=== PATIENT | female | born 1935 | race Caucasian/White ===

== ENCOUNTER 2017-03-04 13:34 | Emergency (ER) | payer OTHER, BC ==
[2017-03-04] MEDS ORDERED: NS 1,000 ML IV ONE (16:00)
[2017-03-04] MEDS ORDERED: ONDANSETRON 4 MG/2 ML VIAL IVP ONE (16:00)
--- NOTE | 2017-03-04 16:04 | EDPHY ---
H & P Stated Complaint: N/V Time Seen by Provider: 03/04/17 15:49 HPI/ROS: CHIEF COMPLAINT: Nausea vomiting HISTORY OF PRESENT ILLNESS: Patient is a 81-year-old female who comes to the emergency department complaining of nausea and vomiting that began this morning. She has vomited twice. She was admitted 1 month ago for septic shock and had an ex lap for what appeared to be free air in her abdomen however the laparotomy was negative. She has a history of kidney stone with a stent in place that had caused acute kidney injury, atrial fibrillation, ileus and hypertension. She denies any abdominal pain or distention today. She has had normal bowel movements and flatus today. No fevers. No blood in her vomit. REVIEW OF SYSTEMS: Constitutional: denies: chills, fever, recent illness, recent injury EENTM: denies: blurred vision, double vision, nose congestion Respiratory: denies: cough, shortness of breath Cardiac: denies: chest pain, irregular heart rate, lightheadedness, palpitations Gastrointestinal/Abdominal: See HPI Genitourinary: denies: dysuria, frequency, hematuria, pain Musculoskeletal: denies: joint pain, muscle pain Skin: denies: lesions, rash, jaundice, bruising Neurological: denies: headache, numbness, paresthesia, tingling, dizziness, weakness Hematologic/Lymphatic: denies: blood clots, easy bleeding, easy bruising Immunologic/allergic: denies: HIV/AIDS, transplant EXAM: GENERAL: Well-appearing, well-nourished and in no acute distress. HEAD: Atraumatic, normocephalic. EYES: Pupils equal round and reactive to light, extraocular movements intact, sclera anicteric, conjunctiva are normal. ENT: TMs normal, nares patent, oropharynx clear without exudates. Moist mucous membranes. NECK: Normal range of motion, supple without lymphadenopathy or JVD. LUNGS: Breath sounds clear to auscultation bilaterally and equal. No wheezes rales or rhonchi. HEART: Regular rate and rhythm without murmurs, rubs or gallops. ABDOMEN: Incision clean dry and intact, Soft, nontender, normoactive bowel sounds. No guarding, no rebound. No masses appreciated. BACK: No CVA tenderness, no spinal tenderness, step-offs or deformities EXTREMITIES: Normal range of motion, no pitting or edema. No clubbing or cyanosis. NEUROLOGICAL: Cranial nerves II through XII grossly intact. Normal speech, normal gait. 5/5 strength, normal movement in all extremities, normal sensation PSYCH: Normal mood, normal affect. SKIN: Warm, dry, normal turgor, no visible rashes or lesions. Source: Patient Exam Limitations: No limitations - Personal History Current Tetanus Diphtheria and Acellular Pertussis (TDAP): Yes - Medical/Surgical History Hx Asthma: Yes Hx Chronic Respiratory Disease: No Hx Diabetes: No Hx Cardiac Disease: No Hx Renal Disease: No Hx Cirrhosis: No Hx Alcoholism: No Hx HIV/AIDS: No Hx Splenectomy or Spleen Trauma: No Other PMH: med hx-chronic back pain,thyroid,kidney stones,cardiac arrythmia. surg-sachin,appy,cataracts,left radial head,skin graft rt foot,lumbar, and bilat knee replacements - Family History Significant Family History: No pertinent family hx - Social History Smoking Status: Never smoked Alcohol Use: Sober Drug Use: None Constitutional: Initial Vital Signs Temperature (C) 36.8 C 03/04/17 14:13 Heart Rate 96 03/04/17 14:13 Respiratory Rate 18 03/04/17 14:13 Blood Pressure 124/95 H 03/04/17 14:13 O2 Sat (%) 92 03/04/17 14:13 O2 Delivery Mode Room Air Allergies/Adverse Reactions: acetaminophen [From Percocet] Allergy (Verified 03/04/17 16:47) HEADACHE Iodinated Contrast Media - Oral and Allergy (Verified 03/04/17 16:47) SWELLING oxycodone HCl [From Percocet] Allergy (Verified 03/04/17 16:47) HEADACHE warfarin [From Coumadin] Allergy (Verified 03/04/17 16:47) Home Medications: Medication Instructions Recorded Atorvastatin Calcium [Lipitor 20 20 mg PO DAILY 07/01/14 mg (RX)] Levothyroxine [Synthroid 75 mcg 75 mcg PO DAILY 07/01/14 (*)] Metoprolol Tartrate [Lopressor 25 12.5 mg PO BID 07/01/14 mg (*)] oxyCODONE IR [Oxycodone Ir (RX)] 5 mg PO Q6 PRN 07/01/14 Apixaban [Eliquis] 5 mg PO BID 04/27/16 oxyCODONE CR [Oxycontin] 10 mg PO Q4 PRN 04/27/16 Hydrocodone/APAP 5/325 [[place] 1 - 2 tab PO Q6H PRN #15 tab 05/01/16 5/325 (*)] Benzonatate 03/04/17 Ondansetron Odt [Zofran Odt 4 mg 4 mg PO Q4 PRN #20 tab 03/04/17 (RX)] Medical Decision Making ED Course/Re-evaluation: Patient's previous admission was at an outside hospital. I was able [facility] The patient is well-appearing and has a benign abdominal exam today. I will obtain lab work. She is primarily here for hydration and nausea medication. We will continue to re-evaluate. 5:30 p.m. the patient is feeling completely well. She has not vomited again. She is receiving IV fluids. We discussed her lab results and she is reassured. She and her daughter decline any further workup or testing at this time in her eager to go home. We discussed indications for returning. Her abdominal exam remains benign. Differential Diagnosis: Partial list of the Differential diagnosis considered include but were not limited to; vomiting, dehydration and although unlikely based on the history and physical exam, I also considered obstruction, ischemia, the perforation,. I discussed these differential diagnoses and the plan with the patient as well as the usual and expected course. The patient understands that the diagnosis is provisional and that in medicine we are not always correct and that further workup is often warranted. Usual and customary warnings were given. All of the patient's questions were answered. The patient was instructed to return to the emergency department should the symptoms at all worsen or return, otherwise to followup with the physician as we discussed. - Data Points Laboratory Results: Laboratory Results 03/04/17 16:16 03/04/17 16:16 03/04/17 03/04/17 03/04/17 16:18 16:16 16:16 WBC 6.05 10^3/uL 10^3/uL (3.80-9.50) RBC 3.44 10^6/uL L 10^6/uL (4.18-5.33) Hgb 11.4 g/dL L g/dL (12.6-16.3) POC Hgb 11.9 gm/dL L gm/dL (12.6-16.3) Hct 35.7 % L % (38.0-47.0) POC Hct 35 % L % (38-47) MCV 103.8 fL H fL (81.5-99.8) MCH 33.1 pg pg (27.9-34.1) MCHC 31.9 g/dL L g/dL (32.4-36.7) RDW 13.9 % % (11.5-15.2) Plt Count 215 10^3/uL 10^3/uL (150-400) MPV 11.0 fL fL (8.7-11.7) Neut % (Auto) 73.7 % % (39.3-74.2) Lymph % (Auto) 13.4 % L % (15.0-45.0) [place] % (Auto) 9.1 % % (4.5-13.0) Eos % (Auto) 1.8 % % (0.6-7.6) Baso % (Auto) 1.5 % % (0.3-1.7) Nucleat RBC Rel Count 0.8 % H % (0.0-0.2) Absolute Neuts (auto) 4.46 10^3/uL 10^3/uL (1.70-6.50) Absolute Lymphs (auto) 0.81 10^3/uL L 10^3/uL (1.00-3.00) Absolute Monos (auto) 0.55 10^3/uL 10^3/uL (0.30-0.80) Absolute Eos (auto) 0.11 10^3/uL 10^3/uL (0.03-0.40) Absolute Basos (auto) 0.09 10^3/uL 10^3/uL (0.02-0.10) Absolute Nucleated RBC 0.05 10^3/uL H 10^3/uL (0-0.01) Immature Gran % 0.5 % % (0.0-1.1) Immature Gran # 0.03 10^3/uL 10^3/uL (0.00-0.10) VBG Lactic Acid POC Sodium 138 mEq/L mEq/L (134-144) Sodium 137 mEq/L mEq/L (134-144) POC Potassium 4.7 mEq/L mEq/L (3.3-5.0) Potassium 4.9 mEq/L mEq/L (3.5-5.2) POC Chloride 102 mEq/L mEq/L (97-110) Chloride 106 mEq/L mEq/L (97-110) Carbon Dioxide 18 mEq/l L mEq/l (22-31) Anion Gap 13 mEq/L mEq/L (8-16) POC BUN 23 mg/dL mg/dL (7-23) BUN 20 mg/dL mg/dL (7-23) Creatinine 1.6 mg/dL H mg/dL (0.6-1.0) POC Creatinine 1.6 mg/dL H mg/dL (0.6-1.0) Estimated GFR 31 Glucose 100 mg/dL mg/dL (70-100) POC Glucose 102 mg/dL H mg/dL (70-100) Calcium 9.9 mg/dL mg/dL (8.5-10.4) Total Bilirubin 1.0 mg/dL mg/dL (0.1-1.4) Conjugated Bilirubin 0.5 mg/dL mg/dL (0.0-0.5) Unconjugated Bilirubin 0.5 mg/dL mg/dL (0.0-1.1) AST 31 IU/L IU/L (14-46) ALT 27 IU/L IU/L (9-52) Alkaline Phosphatase 81 IU/L IU/L (38-126) Total Protein 8.1 g/dL g/dL (6.3-8.2) Albumin 4.3 g/dL g/dL (3.5-5.0) Lipase 324.0 IU/L H IU/L (23-300) 03/04/17 16:16 WBC RBC Hgb POC Hgb Hct POC Hct MCV MCH MCHC RDW Plt Count MPV Neut % (Auto) Lymph % (Auto) [place] % (Auto) Eos % (Auto) Baso % (Auto) Nucleat RBC Rel Count Absolute Neuts (auto) Absolute Lymphs (auto) Absolute Monos (auto) Absolute Eos (auto) Absolute Basos (auto) Absolute Nucleated RBC Immature Gran % Immature Gran # VBG Lactic Acid 1.3 mmol/L mmol/L (0.7-2.1) POC Sodium Sodium POC Potassium Potassium POC Chloride Chloride Carbon Dioxide Anion Gap POC BUN BUN Creatinine POC Creatinine Estimated GFR Glucose POC Glucose Calcium Total Bilirubin Conjugated Bilirubin Unconjugated Bilirubin AST ALT Alkaline Phosphatase Total Protein Albumin Lipase Medications Given: Discontinued Medications Sodium Chloride (Ns) 1,000 mls @ 0 mls/hr IV EDNOW ONE; Wide Open PRN Reason: Protocol Stop: 03/04/17 16:01 Last Admin: 03/04/17 16:46 Dose: 1,000 mls Ondansetron HCl (Zofran) 4 mg IVP EDNOW ONE Stop: 03/04/17 16:01 Last Admin: 03/04/17 16:46 Dose: 4 mg Point of Care Test Results: 03/04/17 16:18 POC Sodium 138 POC Potassium 4.7 POC Chloride 102 POC BUN 23 POC Creatinine 1.6 H POC Glucose 102 H Departure - Departure Disposition: Home, Routine, Self-Care Clinical Impression: Vomiting Qualifiers: Vomiting type: unspecified Vomiting Intractability: non-intractable Nausea presence: without nausea Qualified Code(s): R11.11 - Vomiting without nausea Condition: Fair Instructions: Acute Nausea and Vomiting (ED) Referrals: Norm Noyola MD [Primary Care Provider] - 2-3 days, call for appt. Prescriptions: Ondansetron Odt [Zofran Odt 4 mg (RX)] 4 mg PO Q4 PRN #20 tab PRN Reason: Nausea & Vomiting
[2017-03-04 16:43] LABS: % IMMATURE GRANULYOCYTES 0.5 % (0.0-1.1); ABSOLUTE IMMATURE GRANULOCYTES 0.03 10^3/uL (0.00-0.10); ABSOLUTE NRBC COUNT 0.05 10^3/uL (0-0.01); ADD DIFF? NO; ADD MORPH? NO; ADD SCAN? NO; ATYPICAL LYMPHOCYTE FLAG 0 (0-99); FRAGMENT RBC FLAG 0 (0-99); HEMATOCRIT 35.7 % (38.0-47.0); HEMOGLOBIN 11.4 g/dL (12.6-16.3); LEFT SHIFT FLG 0 (0-99); LIPEMIA HEMOLYSIS FLAG 80 (0-99); MEAN CELL HEMOGLOBIN 33.1 pg (27.9-34.1); MEAN CELL HEMOGLOBIN CONCENTR. 31.9 g/dL (32.4-36.7); MEAN CELL VOLUME 103.8 fL (81.5-99.8); NRBC-AUTO% 0.8 % (0.0-0.2); PLATELET CLUMPS FLAG 40 (0-99); PLATELET COUNT 215 10^3/uL (150-400); RED BLOOD CELL COUNT 3.44 10^6/uL (4.18-5.33); RED CELL DISTRIBUTION WIDTH 13.9 % (11.5-15.2)
[2017-03-04 16:55] LABS: ALANINE AMINOTRANSFERASE 27 IU/L (9-52); ALBUMIN 4.3 g/dL (3.5-5.0); ALKALINE PHOSPHATASE 81 IU/L (38-126); ANION GAP 13 mEq/L (8-16); ASPARTATE AMINOTRANSFERASE 31 IU/L (14-46); BILIRUBIN-CONJUGATED 0.5 mg/dL (0.0-0.5); BILIRUBIN-UNCONJUGATED 0.5 mg/dL (0.0-1.1); CALCIUM 9.9 mg/dL (8.5-10.4); CARBON DIOXIDE 18 mEq/l (22-31); CHLORIDE 106 mEq/L (97-110); CREATININE 1.6 mg/dL (0.6-1.0); GLOMERULAR FILTRATION RATE 31; GLUCOSE 100 mg/dL (70-100); POTASSIUM 4.9 mEq/L (3.5-5.2); SODIUM 137 mEq/L (134-144); TOTAL PROTEIN 8.1 g/dL (6.3-8.2)
[2017-03-04 18:24] VITALS: BP 145/96; PULSE 100; RESP 18; TEMP 98.1; O2SAT 96
== END 2017-03-04 18:24 | disposition home or self-care (01) ==
DX: R11.11 Vomiting without nausea (principal); E86.9 Volume depletion, unspecified; J45.909 Unspecified asthma, uncomplicated
CPT/HCPCS: 96374; 99284; J2405; 82947-QW

== ENCOUNTER → 2017-04-04 | Outpatient (CLI) | payer OTHER, BC | LOC: FIMAGING 12:32 | PROVIDERS: ATTEND Physician Assistant | DX: H53.9 Unspecified visual disturbance (principal) ==

== ENCOUNTER → 2017-04-15 | Outpatient (CLI) | payer OTHER, BC | LOC: FIMAGING 15:28 | PROVIDERS: ATTEND Surgery | DX: R14.0 Abdominal distension (gaseous) (principal); N20.0 Calculus of kidney; Z98.1 Arthrodesis status ==

== ENCOUNTER → 2017-04-26 | Outpatient (CLI) | payer OTHER, BC | LOC: BHFA 14:45 | PROVIDERS: ATTEND Internal Medicine Cardiovascular Disease | DX: R06.00 Dyspnea, unspecified (principal) ==

== ENCOUNTER → 2017-05-09 | Outpatient (CLI) | payer OTHER, BC | LOC: BHFA 09:30 | PROVIDERS: ATTEND Internal Medicine Cardiovascular Disease | DX: R06.00 Dyspnea, unspecified (principal) | CPT/HCPCS: 78452; 93017; A9500; J2785 ==

== ENCOUNTER 2017-05-22 09:21 | Day surgery (SDC) | payer OTHER, BC ==
[2017-05-22] MEDS ORDERED: NS 1,000 ML IV ONE (09:23)
[2017-05-22] MEDS ORDERED: methylPREDNISolone SOD SUCC 125 MG/2 ML VIAL IVP ONE (09:23)
[2017-05-22] MEDS ORDERED: ASPIRIN EC 325 MG TAB PO ONE ×2 (09:23→09:55)
[2017-05-22] MEDS ORDERED: FAMOTIDINE 20 MG/NACL 50 ML IV ONE (09:23)
--- NOTE | 2017-05-22 09:46 | CPEKG ---
Heart Rate: 74 RR Interval: 811 P-R Interval: 170 QRSD Interval: 72 QT Interval: 392 QTC Interval: 435 P Streetman: 0 QRS Streetman: 16 T Wave Streetman: 8 EKG Severity - OTHERWISE NORMAL ECG - EKG Impression: SINUS RHYTHM EKG Impression: nonspecific inferior T-wave changes Electronically Signed By: Sean Daniels 22-May-2017 10:38:28
[2017-05-22] MEDS ORDERED: FAMOTIDINE 20 MG/NACL/50 ML BAG IV ONE (09:55)
[2017-05-22] MEDS ORDERED: methylPREDNISolone SOD SUCC 125 MG/2 ML VIAL ONE (09:55)
[2017-05-22] MEDS ORDERED: DIAZEPAM 5 MG TAB ONE (09:56)
[2017-05-22] MEDS ORDERED: LIDOCAINE 1% 300 MG/30 ML SDV ONE (10:03)
[2017-05-22] MEDS ORDERED: IOPAMIDOL (ISOVUE-370) 150 ML BTL IV ONE (10:04)
[2017-05-22] MEDS ORDERED: fentaNYL 100 MCG/2 ML INJ ONE (10:04)
[2017-05-22] MEDS ORDERED: MIDAZOLAM 2 MG/2 ML VIAL ONE (10:04)
[2017-05-22] MEDS: DIAZEPAM 5 MG TAB PO ONE ×2 (10:05→13:16)
[2017-05-22 10:16] LABS: % IMMATURE GRANULYOCYTES 0.2 % (0.0-1.1); ABSOLUTE IMMATURE GRANULOCYTES 0.01 10^3/uL (0.00-0.10); ADD DIFF? NO; ADD MORPH? NO; ADD SCAN? NO; ATYPICAL LYMPHOCYTE FLAG 20 (0-99); FRAGMENT RBC FLAG 0 (0-99); HEMATOCRIT 32.9 % (38.0-47.0); HEMOGLOBIN 10.4 g/dL (12.6-16.3); LEFT SHIFT FLG 0 (0-99); LIPEMIA HEMOLYSIS FLAG 80 (0-99); MEAN CELL HEMOGLOBIN 33.7 pg (27.9-34.1); MEAN CELL HEMOGLOBIN CONCENTR. 31.6 g/dL (32.4-36.7); MEAN CELL VOLUME 106.5 fL (81.5-99.8); MEAN PLATELET VOLUME 10.3 fL (8.7-11.7); PLATELET CLUMPS FLAG 10 (0-99); PLATELET COUNT 184 10^3/uL (150-400); RED BLOOD CELL COUNT 3.09 10^6/uL (4.18-5.33); RED CELL DISTRIBUTION WIDTH 14.6 % (11.5-15.2)
[2017-05-22 10:34] LABS: ANION GAP 10 mEq/L (8-16); CALCIUM 8.8 mg/dL (8.5-10.4); CARBON DIOXIDE 20 mEq/l (22-31); CHLORIDE 102 mEq/L (97-110); CHOLESTEROL 122 mg/dL (140-220); CHOLESTEROL/HDL RATIO 3.59 RATIO (1.00-4.44); CREATININE 1.1 mg/dL (0.6-1.0); GLOMERULAR FILTRATION RATE 48; GLUCOSE 72 mg/dL (70-100); HIGH DENSITY LIPOPROTEIN 34 mg/dL (40-85); LDL/HDL RATIO 1.71 RATIO (1.00-3.22); LOW DENSITY LIPOPROTEIN 58 mg/dL (80-100); MAGNESIUM 1.7 mg/dL (1.6-2.3); NON-HIGH DENSITY LIPOPROTEIN 88 mg/dL (90-129); POTASSIUM 4.6 mEq/L (3.5-5.2); SODIUM 132 mEq/L (134-144); TRIGLYCERIDE 151 mg/dL (35-135); VERY LOW DENSITY LIPOPROTEINS 30 mg/dL (8-25)
[2017-05-22 10:40] LABS: INR 1.12 (0.83-1.16); PROTIME(PATIENT) 14.3 SEC (12.0-15.0)
--- NOTE | 2017-05-22 11:01 | PDHPUP ---
History & Physical Update H&P update statement: This history and physical update is based on an assessment of the patient which was completed after admission or registration (within 24 hours), but prior to the surgery/procedure. H&P update: H&P reviewed & patient examined, no change in patient's condition since H&P completed
--- NOTE | 2017-05-22 11:01 | PDPROPOC ---
Sedation Plan of Care Sedation Plan of Care: vital signs stable, mental status noted, patient educated of risks, benefits, alternatives, patient can tolerate sedation ASA Classification: ASA 2 Planned drugs: fentanyl, midazolam Mallampati Score: Class 2 Mallampati Reference Image: Patient passed 3-3-2 rule?: Yes
[2017-05-22] MEDS ORDERED: HYDROCODONE/APAP 5/325 TAB PO PRN (12:28)
[2017-05-22] MEDS ORDERED: OXYCODONE/APAP 5/325 TAB PO PRN ×2 (12:28→13:34)
[2017-05-22] MEDS ORDERED: ONDANSETRON 4 MG/2 ML VIAL IVP PRN (12:28)
[2017-05-22] MEDS ORDERED: ATROPINE SULFATE 1 MG/10 ML SYR IVP PRN (12:28)
[2017-05-22] MEDS ORDERED: NITROGLYCERIN 0.4 MG BTL SL PRN (12:28)
--- NOTE | 2017-05-22 12:34 | PDDXCAT ---
Diagnostic Cath Note - . Date: 05/22/17 Basket Grader: Hector Indication: other (class III SOB, known CAD) - Procedure Access: right groin Procedure: left heart catheterization, coronary angiography, right heart catheterization - Materials Left Heart Cath size: 6F Left Heart Cath materials: standard multipack (JL4, JR4, pigtail) Right Heart Cath size: 7F Right Heart Cath materials: PWP catheter - Findings-Left Heart Catheterization LM: normal LAD: normal with 1 principal diag LCX: normal Lcx with 2 OMs RCA: dominant. Normal EDP: 22 - Findings-Right Heart Catheterization RA: mean of 10 RV: 45/10 PA: mean 22; 34/17 AO: Ao 162/72; LV 163 Complications: none Estimated blood loss: <50ml Closure method: Angioseal Assessment: normal coronaries. Mildly elevated right and left heart pressures Plan: medical management; assess for noncardiac causes of SOB Intervention: none
== END 2017-05-22 16:12 | disposition home or self-care (01) ==
LOC: FCATH 09:21
PROVIDERS: ATTEND Internal Medicine Cardiovascular Disease
DX: R06.09 Other forms of dyspnea (principal); I48.2 Chronic atrial fibrillation; Z79.01 Long term (current) use of anticoagulants; I10 Essential (primary) hypertension; E78.5 Hyperlipidemia, unspecified; I25.10 Atherosclerotic heart disease of native coronary artery without angina pectoris
CPT/HCPCS: C1760; J1200; J1644; J2250; J3010; Q9967

== ENCOUNTER → 2017-08-01 | Outpatient (CLI) | payer OTHER, BC | LOC: FIMAGING 15:10 | PROVIDERS: ATTEND Surgery | DX: R10.84 Generalized abdominal pain (principal); R93.3 Abnormal findings on diagnostic imaging of other parts of digestive tract; R91.1 Solitary pulmonary nodule; N20.0 Calculus of kidney; N83.8 Other noninflammatory disorders of ovary, fallopian tube and broad ligament ==